=== PATIENT | male | born 2000 | race Caucasian/White ===

== ENCOUNTER 2022-02-13 22:40 | Emergency (ER) | payer BC ==
[~2022-02-13] VITALS: Ht 185.4 cm; Wt 147.9 kg
[2022-02-13 23:51] VITALS: BP 115/65
--- NOTE | 2022-02-14 01:27 | NUR ---
Patient ambulated to bed 8.
--- NOTE | 2022-02-14 01:38 | NUR ---
Note undone in EDM - 02/14/22 at 0158 by LAVON / BIB SELF FROM HOME C/C BACK INJURY S/P "FEELIING LIKE I WAS GOING TO FAINT AND FELL. HIT MYSELF ON MY LEFT MID BACK". PER PATIENT HES BEEN FEELING TIRED. HE WAS OUT IN THE SUN ALL DAY AND HE THINGS THAT MAY HAVE CAUSE IT. PATIENT IS AAOX4, AMBULATORY. RR APPEAR TO BE EVEN AND UNLABORED. DOESENT APPEAR TO BE IN DISTRESS. BED LOW AND LOCKED. SIDE RAIL UP X1. ALL NEEDS MET. PMHX ASTHMA, TORN ACL NKA
--- NOTE | 2022-02-14 01:38 | NUR ---
21/M BIB SELF FROM HOME C/C BACK INJURY S/P "FEELIING LIKE I WAS GOING TO FAINT AND FELL. PAIN IS HIT MYSELF ON MY LEFT MID BACK AND HEAD". PER PATIENT HE HAD LOC FOR 10 SEC. PER WITNESS, HE REPORTS HAVING BLURRY VISION PRIOR TO FALL. PER PATIENT HES BEEN FEELING TIRED. HE WAS OUT IN THE SUN ALL DAY AND HE THINGS THAT MAY HAVE CAUSE IT. PATIENT DENIES HAVING THIS TYPE OF EPISODE IN THE PAST, N/V/SOB/CP. STATED THAT HE HAD MARIJUANA TODAY. DENIES TAKING ANY PAIN MEDS PRIOR TO ARRIVAL. PATIENT IS AAOX4, AMBULATORY. RR APPEAR TO BE EVEN AND UNLABORED. DOESENT APPEAR TO BE IN DISTRESS. BED LOW AND LOCKED. SIDE RAIL UP X1. ALL NEEDS MET. PMHX ASTHMA, TORN ACL NKA
--- NOTE | 2022-02-14 01:50 | NUR ---
Patient being evaluated by physician at bedside.
--- NOTE | 2022-02-14 01:59 | NUR ---
Patient being evaluated by physician at bedside.
--- NOTE | 2022-02-14 02:01 | NUR ---
PATIENT AMBULATED TO THE RR
--- NOTE | 2022-02-14 02:04 | NUR ---
LIZBET TAKENT TO CT VIA W/C
--- NOTE | 2022-02-14 02:27 | NUR ---
Patient returned back from CT scan.
[2022-02-14 02:42] LABS: APPEARANCE,URINE CLEAR (CLEAR); BILIRUBIN,URINE 1+ (NEGATIVE); BLOOD, URINE NEGATIVE (NEGATIVE); COLOR,URINE YELLOW (YELLOW); LEUKOCYTE ESTERASE ,URINE NEGATIVE (NEGATIVE); NITRITE, URINE NEGATIVE (NEGATIVE); UGLUCOSE NEGATIVE (NEGATIVE)
--- NOTE | 2022-02-14 02:42 | NUR ---
URINE RESULTS PENDING
[2022-02-14 02:53] LABS: RBC,URINE 0-5 /HPF (0-5); WBC,URINE 0-5 /HPF (0-5)
[2022-02-14 02:54] LABS: BARBITURATE, URINE NEGATIVE ng/ml (NEG <=200); BENZODIAZEPINE, URINE NEGATIVE ng/mL (NEG <=200); CANNABINOID, URINE POSITIVE ng/mL (NEG <=50); COCAINE, URINE NEGATIVE ng/mL (NEG <=300); OPIATE, URINE NEGATIVE ng/mL (NEG <=2000); PHENCYCLIDINE SCREEN,URINE NEGATIVE ng/mL (NEG <=25)
--- NOTE | 2022-02-14 03:00 | NUR ---
PATIETN RESTING IN BED WITH EYES CLOSED. RR APPEAR TO BE EVEN AND UNLABORED. DOESNT APPEAR TO BE IN DISTRESS. BED LOW AND LOCKED. ALL NEEDS MET
[2022-02-14] MEDS ORDERED: LID5T TP (04:49)
[2022-02-14] MEDS ORDERED: IBUP-2213 PO (04:49)
[2022-02-14 04:53] VITALS: BP 110/78
--- NOTE | 2022-02-14 04:54 | NUR ---
Chart checked and completed.
--- NOTE | 2022-02-14 04:54 | NUR ---
Patient discharged with v/s stable. Written and verbal after care instructions given and explained. Patient alert, oriented and verbalized understanding of instructions. Ambulatory with steady gait. All questions addressed prior to discharge. ID band removed. Patient advised to follow up with PMD. Rx of IBUPROFEN AND LIDOCAINE given. AAOX4, AMBULATORY WITH STEADY GAIT.
== END 2022-02-14 04:53 | disposition home or self-care (01) ==
LOC: MED 22:40
DX: S09.90XA Unspecified injury of head, initial encounter (principal); R55 Syncope and collapse; J45.909 Unspecified asthma, uncomplicated; F12.90 Cannabis use, unspecified, uncomplicated; Z72.89 Other problems related to lifestyle; Z98.890 Other specified postprocedural states; W18.30XA Fall on same level, unspecified, initial encounter; Y93.89 Activity, other specified; Y92.89 Other specified places as the place of occurrence of the external cause; Y99.8 Other external cause status
CPT/HCPCS: 70450; 71101; 80305; 81001; 93005; 99285